=== PATIENT | female | born 2000 | race African-American/Black ===

== ENCOUNTER 2021-08-22 09:10 | Emergency (ER) | payer OTHER ==
[~2021-08-22] VITALS: Ht 170.2 cm; Wt 156.0 kg
[2021-08-22 13:30] LABS: CALCIUM 8.8 mg/dL (8.5-10.1); CREATININE 1.6 mg/dL (0.6-1.3); POTASSIUM 4.1 mmol/L (3.5-5.1)
[2021-08-22] MEDS ORDERED: HYDROCHLOROTH12.5 M2 PO (14:11)
[2021-08-22 14:22] VITALS: BP 152/112
== END 2021-08-22 14:23 | disposition home or self-care (01) ==
LOC: M.ERS 09:10
PROVIDERS: Emergency Medicine Emergency Medical Services
DX: I10 Essential (primary) hypertension (principal)